=== PATIENT | male | born 1940 | race Caucasian/White ===

== ENCOUNTER 2017-11-23 05:41 | Emergency (ER) | payer MEDICARE, SELFPAY ==
[2017-11-23 05:43] VITALS: BP 99/50; PULSE 94; RESP 36; TEMP 38.9; O2SAT 96; BMI 25.9
[2017-11-23 05:51] LABS: Bedside Glucose 172 mg/dL (70-110)
--- NOTE | 2017-11-23 06:10 | RAD_ITS ---
STUDY: X-RAY CHEST REASON FOR EXAM: Male, 77 years old. Unresponsive. Hypoxia. TECHNIQUE: Single AP portable view of the chest. COMPARISON: None. FINDINGS: There is interstitial prominence in the lung alanis, suggesting mild CHF. There is no demonstrated pleural abnormality. There is mild cardiac enlargement. There is an atrioventricular pacemaker. There are sternotomy wires. Normal mediastinum and steffany. Normal visualized pulmonary arteries. There is atherosclerotic calcification of the aortic arch with tortuosity. There are diffuse degenerative changes of the visualized thoracic spine. Normal visualized ribs, clavicles, and shoulders. There is no demonstrated abnormality of the visualized soft tissue structures of the upper abdomen. RAD/Chest 1 View (Portable) IMPRESSION: Cardiomegaly with mild CHF. Pacemaker. Electronically Signed: Fabiano Mejia MD at 6:49 EDT , Service support ,
[2017-11-23 06:19] LABS: Absolute Lymphocyte Count 0.94 X10^3/ul (0.83-4.51); Absolute Neutrophil Count 17.3 X10^3/uL (2.0-7.7); Basophil# 0.01 X10^3/uL; Basophil% 0.1 % (0-1); Hematocrit 33.8 % (40-54); Hemoglobin 10.8 g/dl (13.0-16.5); Lymphocyte # 0.94 X10^3/ul (4.0); Lymphocyte % 4.9 % (19-41); Mean Corpuscular Volume 90.9 fL (80-94); Mean Platelet Vol. 11.1 fl (6.2-12.0); Monocyte# 0.82 X10^3/uL; Monocyte% 4.3 % (0-10); Neutrophil % 90.5 % (47-70); Platelet Count 238 K/mm3 (150-450); RBC Distribution Width CV 13.8 % (11.6-14.6); RBC Distribution Width SD 45.4 fl (35.1-43.9); Red Blood Count 3.72 M/mm3 (4.6-6.2); White Blood Count 19.1 K/mm3 (4.4-11.0)
[2017-11-23 06:22] LABS: Anion Gap 7 (5-15); BUN 42 mg/dL (7-18); BUN/Creat Ratio 35.6 RATIO (10-20); Calcium,Total 8.9 mg/dL (8.5-10.1); Chloride 110 mmol/L (98-107); Creatinine, Serum 1.18 mg/dL (0.70-1.30); EST Glomerular Filtration Rate 64 mL/min (>60); Est Glom Filt Rate - Afr Amer 77 mL/min (>60); Estimated Creatinine Clearance 55.84 ml/min; Glucose 167 mg/dL (74-106); Potassium 3.3 mmol/L (3.5-5.1); Sodium Level 142 mmol/L (136-145)
[2017-11-23 06:26] LABS: Differential Indicated SCAN CRITERIA MET; POSITIVE COUNT NO; POSITIVE DIFFERENTIAL NO; POSITIVE MORPHOLOGY YES
[2017-11-23] MEDS: Acetaminophen 650 MG Suppository RECTAL (06:33)
--- NOTE | 2017-11-23 06:33 | ED.RN ---
AWARE THAT THE PT RECIEVED A TYLENOL SUPP AT 0430 AT THE [facility]. WANTED TYLENOL GIVEN ANY WAY.
[2017-11-23 06:37] LABS: Mucous, Urine 0 SEEN /hpf (<or=2+); Red Blood Cells-Urine 0 SEEN /hpf (0-5); Squamous Epithelial Cells - UA 0 SEEN /hpf (0-5)
[2017-11-23 06:38] LABS: Differential Comment SCANNED
[2017-11-23 06:49] LABS: Color, Urine Yellow (Yellow); Glucose, Dipstick Normal (Normal); Ketone-Dipstick 5 mg/dl (Negative); Leukocyte Esterase-Dipstick 100 /ul (Negative); Nitrite-Dipstick Negative (Negative); Occult Blood-Urine 25 /ul (Negative); Protein-Dipstick 15 mg/dl (Negative); Specific Gravity, Urine 1.015 (1.002-1.030); Urine Bilirubin Dipstick Negative (Negative); Urine Clarity Clear (Clear); Urine Urobilinogen Normal (Normal)
[2017-11-23 06:57] LABS: Bacteria 1+ /hpf (None Seen); White Blood Cells 0-5 SEEN /hpf (0-5)
[2017-11-23 07:20] VITALS: BP 97/46; PULSE 72; RESP 20; O2SAT 97
--- NOTE | 2017-11-23 07:30 | ED.VISSUMM ---
- ER Visit Summary Date of Service: 11/23/17 Chief Complaint: [] Unresponsive History of Present Illness: The patient is a 77 M [] presenting from [facility] with a change in mental status. Patient is unable to provide history. Nursing staff reports via nursing staff at the [facility] the patient was at his baseline mental status yesterday and had a sudden change in mental status early this morning and was not responsive to sternal rub. 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 Physical Examination: [] Elderly male presenting with sonorous respirations. While at 102.1. BP 97/46. Heart rate 72. Respiratory rate 20. Pulse ox 97% on room air. Cardiovascular exam is regular rate and rhythm. Lungs are clear to auscultation with diminished breath sounds. Abdomen is soft and nontender. Test Results: [] Chest x-ray one view negative. CBC shows white blood cell count 19.1. BMP reveals potassium of 3.3 and a BUN of 42. Urinalysis normal. Emergency Department Course and Treatment: [] Patient provided normal saline intravenously, rectal Tylenol upon arrival. Basic laboratory and diagnostic testing did not reveal underlying cause for the change in mental status. 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 She confirms the DNR order and does not want any heroic measures. They reportedly do not want any chest compressions or intubation. I discussed the possibility of having the patient transferred back to the long-term facility after a consultation with a hospice nurse. She is amenable to evaluation by hospice/positive care and transfer back to the long-term facility. Treatment Plan: [] Awaiting evaluation by hospice/palliative care. Disposition: [] Pending evaluation. 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 It may contain incorrect words, spelling, and punctuation that were not noted in review of the chart prior to signing ED Disposition - Plan for ED Patient: Chief Complaint: Unresponsive Referrals: [facility] Doctor,Out of [Primary Care Provider] -
--- NOTE | 2017-11-23 07:36 | ED.DCSUM_ITS ---
- ER Visit Summary Date of Service: 11/23/17 Chief Complaint: [] Unresponsive History of Present Illness: The patient is a 77 M [] presenting from [facility] with a change in mental status. Patient is unable to provide history. Nursing staff reports via nursing staff at the [facility] the patient was at his baseline mental status yesterday and had a sudden change in mental status early this morning and was not responsive to sternal rub. 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 Physical Examination: [] Elderly male presenting with sonorous respirations. While at 102.1. BP 97/46. Heart rate 72. Respiratory rate 20. Pulse ox 97% on room air. Cardiovascular exam is regular rate and rhythm. Lungs are clear to auscultation with diminished breath sounds. Abdomen is soft and nontender. Test Results: [] Chest x-ray one view negative. CBC shows white blood cell count 19.1. BMP reveals potassium of 3.3 and a BUN of 42. Urinalysis normal. Emergency Department Course and Treatment: [] Patient provided normal saline intravenously, rectal Tylenol upon arrival. Basic laboratory and diagnostic testing did not reveal underlying cause for the change in mental status. 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 She confirms the DNR order and does not want any heroic measures. They reportedly do not want any chest compressions or intubation. I discussed the possibility of having the patient transferred back to the [facility] facility after a consultation with a hospice nurse. She is amenable to evaluation by hospice/positive care and transfer back to the [facility] facility. Treatment Plan: [] Awaiting evaluation by hospice/palliative care. Disposition: [] Pending evaluation. Impression: [] Change in mental status Systemic inflammatory response syndrome DNR-APPRENTICE PAINTER HAND This note was generated with [employer] dictation software. It may contain incorrect words, spelling, and punctuation that were not noted in review of the chart prior to signing ED Disposition - Plan for ED Patient: Chief Complaint: Unresponsive Referrals: [facility] Doctor,Out of [Primary Care Provider] -
[2017-11-23 09:02] VITALS: BP 112/47; PULSE 78; RESP 16; O2SAT 99
--- NOTE | 2017-11-23 09:08 | ED.RN ---
Pt report called to [facility] facility. Report given to NOY Ojeda over the phone.
[2017-11-23 09:41] VITALS: BP 117/54; PULSE 74; RESP 16; O2SAT 99
== END 2017-11-23 09:44 | disposition home or self-care (01) ==
PROVIDERS: Emergency Provider Emergency Medicine
DX: R41.82 Altered mental status, unspecified (principal); R65.10 Systemic inflammatory response syndrome (SIRS) of non-infectious origin without acute organ dysfunction; Z66 Do not resuscitate; J44.9 Chronic obstructive pulmonary disease, unspecified; I25.10 Atherosclerotic heart disease of native coronary artery without angina pectoris; G61.0 Guillain-Barre syndrome; Z95.1 Presence of aortocoronary bypass graft; Z95.0 Presence of cardiac pacemaker; Z72.0 Tobacco use; Z79.4 Long term (current) use of insulin; Z79.899 Other long term (current) drug therapy
CPT/HCPCS: 51702; 71045; 80048; 81001; 82962; 85025; 96360; 96361; 99285; J7030; J7040